=== PATIENT | male | born 1945 | race Caucasian/White ===

== ENCOUNTER 2016-10-20 17:21 | Inpatient (IN) ==
[2016-10-20] MEDS ORDERED: Ondansetron 4 MG/2 ML VIAL IVP ONE (17:36)
[2016-10-20] MEDS ORDERED: *HR* HYDROmorphone (PF) 1 MG/ML SYRINGE IVP ONE (17:36)
--- NOTE | 2016-10-20 17:44 | Emergency Department Note ---
Disposition Clinical Impression: Hyperbilirubinemia Pancreatitis Qualifiers: Chronicity: acute Pancreatitis type: unspecified pancreatitis type Acute pancreatitis complication: unspecified Qualified Code(s): K85.90 - Acute pancreatitis without necrosis or infection, unspecified Disposition: Admitted As Inpatient Condition: Fair Referrals: NONE,PCP [Non-Partnered Physician] - Forms: Work/School Release, ED Satisfaction Letter Time of Disposition: 18:38 (Problem) Abdominal Pain HPI - General Chief Complaint: ED Abdominal Pain Stated Complaint: ABD pain Time Seen by Provider: 10/20/16 17:30 Source: patient, family Mode of arrival: ambulatory Limitations: no limitations Nursing Notes Reviewed: Yes Vital Signs Reviewed: Yes - History of Present Illness HPI Narrative: Patient complains of upper abdominal pain for the past 3 days. History of similar symptoms due to pancreatitis. 2 years ago he underwent a cholecystectomy. He notes a normal appetite. No other associated symptoms Pt Subjective Complaint: abdominal pain Onset (ago): day(s) Consistency: constant Location: epigastric Pain Severity: moderate Pain Scale: 4 Quality: aching Radiation: back Improves with: nothing Worsens with: nothing Associated symptoms: Reports: denies other symptoms Treatments prior to arrival: none - Related Data Home Medications Medication Instructions Recorded Confirmed Allopurinol [Zyloprim] 300 mg PO HS 01/03/15 01/03/15 Triamterene/HCTZ 75/50mg [Maxzide] 1 each PO DAILY 01/03/15 01/03/15 Warfarin [Coumadin] 5 mg PO 1800 01/03/15 01/03/15 Previous Rx's Medication Instructions Recorded OxyCODONE/APAP 5/325 [Percocet 1 each PO Q6HR PRN #30 tablet 01/03/15 5/325] Allergies Allergy/AdvReac Type Severity Reaction Status Date / Time clindamycin AdvReac Rash Verified 01/03/15 12:44 tamsulosin [From Flomax] AdvReac Rash Verified 01/03/15 12:44 All systems ED: reviewed and negative except as stated. Constitutional: Reports: as per HPI Eyes: Reports: as per HPI ENT ED: Reports: as per HPI Cardiovascular: Reports: as per HPI Respiratory: Reports: as per HPI Gastrointestinal: Reports: abdominal pain Genitourinary: Reports: as per HPI Musculoskeletal: Reports: back pain Integumentary: Reports: as per HPI Neurological: Reports: as per HPI Psychiatric: Reports: as per HPI Endocrine: Reports: as per HPI Hematological/Lymphatic: Reports: as per HPI Allergic/Immunologic: Reports: as per HPI Abdominal Pain PMH - Past Medical History Medical history: Reports: DVT, hyperlipidemia, hypertension, pulmonary embolus, other Male Surgical History: Reports: appendectomy, other Psychiatric history: Reports: no psych history - Social History Smoking status: Never smoker Alcohol use: Reports: rarely Drug use: Reports: none Physical Exam - General Limitations: no limitations General appearance: alert - Head Head exam: atraumatic - Eye Eye exam: Present: normal appearance - ENT ENT exam: normal exam - Neck Neck exam: Present: normal inspection - Chest Chest inspection: Present: normal inspection, symmetric chest wall rise - Respiratory Respiratory exam: Present: normal lung sounds bilaterally - Cardiovascular Cardiovascular exam: Present: normal rhythm, bradycardia, normal heart sounds - Abdominal Exam Abdominal exam: Present: soft, tenderness, normal bowel sounds (mildly tender in epigastrium) - Rectal Exam Rectal exam: Present: deferred - Extremities Exam Extremities exam: Present: normal inspection - Neurological Exam Neurological exam: Present: alert, oriented X3, CN II-XII intact - Psychiatric Psychiatric exam: Present: normal affect, normal mood - Skin Skin exam: Present: warm, dry, intact Course Course Narrative: Patient complains of epigastric pain. He has known history of recurrent pancreatitis. Workup initiated. I do plan to CT scan his abdomen and pelvis without contrast because he takes Coumadin and I am concerned about the possibility of hemorrhagic pancreatitis - Reevaluation(s) Reevaluation #1: Test results discussed with patient. Concern for choledocholithiasis. Bilirubin is elevated. I will obtain an ultrasound of his common bile duct. He will be admitted to the medicine service. Requested consultation from GI. - Consultations Consultation #1: Call placed to GI clinical education coordinator. I spoke with Dr. Graham, covering for GI service. consult placed in computer Vital Signs Temperature 97.9 F 10/20/16 17:22 Pulse Rate 53 10/20/16 17:22 Respiratory Rate 16 10/20/16 17:22 Blood Pressure 114/77 10/20/16 17:22 O2 Sat by Pulse Oximetry 95 10/20/16 17:22 Temperature 97.9 F 10/20/16 17:22 Pulse Rate 82 10/20/16 18:05 Respiratory Rate 18 10/20/16 18:05 Blood Pressure 158/80 10/20/16 18:05 O2 Sat by Pulse Oximetry 97 10/20/16 18:05 Oxygen Delivery Oxygen Delivery Room Air Abdominal Pain - Lab Data Lab results reviewed: Yes I reviewed the patient's lab results. Result diagrams: 10/20/16 17:49 10/20/16 17:49 Lab Results 10/20/16 10/20/16 10/20/16 Range/Units 17:49 17:49 17:49 WBC 10.9 (4.3-11.1) K/mcL RBC 6.09 H (4.19-5.50) M/mcL Hgb 17.8 H (12.9-16.9) g/dL Hct 54.6 H (37.5-50.1) % MCV 89.7 (83.0-100.0) fL MCH 29.2 (28.0-33.3) pg MCHC 32.6 (31.6-35.5) g/dL RDW 14.3 (11.5-14.5) % Plt Count 188 (140-400) K/mcL MPV 10.0 (9.4-12.4) fL Immature Gran % 0.6 (0-4) % Seg Neutrophils % 61.6 % Lymphocytes % 27.6 % Monocytes % 7.7 % Eosinophils % 2.2 % Basophils % 0.3 % Neutrophils # 6.7 (1.6-8.9) K/mcL Lymphocytes # 3.0 (0.6-4.6) K/mcL Monocytes # 0.8 (0.0-1.3) K/mcL Eosinophils # 0.2 (0.0-0.6) K/mcL Basophils # 0.0 (0.0-0.2) K/mcL PT (9.4-12.1) Seconds INR Sodium 135 L (136-145) mEq/L Potassium 3.8 (3.5-4.5) mEq/L Chloride 99 (98-109) mEq/L Carbon Dioxide 29 (19-29) mEq/L BUN 18 (8-26) mg/dL Creatinine 1.32 H (0.72-1.25) mg/dL Est GFR ( Amer) > 60 (> 60) Est GFR (Non-Af Amer) 54 L (> 60) BUN/Creatinine Ratio 14 (6-26) Glucose 100 H (70-99) mg/dL Calculated Osmolality 282 (280-300) Calcium 10.0 (8.6-10.8) mg/dL Total Bilirubin 2.9 H (0.2-1.2) mg/dL AST 138 H (5-34) Units/L ALT 98 H (0-55) Units/L Alkaline Phosphatase 153 H (38-126) Units/L Troponin I 0.00 (0-0.03) ng/mL Serum Total Protein 7.0 (6.0-8.3) g/dL Albumin 3.5 (3.5-5.0) g/dL Globulin 3.5 (2.4-3.5) g/dL Albumin/Globulin Ratio 1.0 L (1.1-2.2) Amylase 53 (25-125) Units/L Lipase 38 (8-78) Units/L Urine Color (Yellow) Urine Clarity (Clear) Urine pH (5.0-8.0) pH Units Ur Specific [place] (1.010-1.025) Urine Protein (Neg-Trace) mg/dL Urine Glucose (UA) (Normal) mg/dL Urine Ketones (Negative) mg/dL Urine Blood (Negative) Urine Nitrite (Negative) Urine Bilirubin (Negative) Urine Urobilinogen (Normal) mg/dL Ur Leukocyte Esterase (Negative) Urine Microscopic RBC (0-3) per hpf Urine Microscopic WBC (0-3) per hpf Ur Squamous Epith Cells (None-Few) per lpf Urine Bacteria (None-Few) per hpf Hyaline Casts (None-Few) per lpf Urine Mucus (Few) 10/20/16 10/20/16 Range/Units 17:49 18:17 WBC (4.3-11.1) K/mcL RBC (4.19-5.50) M/mcL Hgb (12.9-16.9) g/dL Hct (37.5-50.1) % MCV (83.0-100.0) fL MCH (28.0-33.3) pg MCHC (31.6-35.5) g/dL RDW (11.5-14.5) % Plt Count (140-400) K/mcL MPV (9.4-12.4) fL Immature Gran % (0-4) % Seg Neutrophils % % Lymphocytes % % Monocytes % % Eosinophils % % Basophils % % Neutrophils # (1.6-8.9) K/mcL Lymphocytes # (0.6-4.6) K/mcL Monocytes # (0.0-1.3) K/mcL Eosinophils # (0.0-0.6) K/mcL Basophils # (0.0-0.2) K/mcL PT 47.1 H* (9.4-12.1) Seconds INR 4.2 Sodium (136-145) mEq/L Potassium (3.5-4.5) mEq/L Chloride (98-109) mEq/L Carbon Dioxide (19-29) mEq/L BUN (8-26) mg/dL Creatinine (0.72-1.25) mg/dL Est GFR ( Amer) (> 60) Est GFR (Non-Af Amer) (> 60) BUN/Creatinine Ratio (6-26) Glucose (70-99) mg/dL Calculated Osmolality (280-300) Calcium (8.6-10.8) mg/dL Total Bilirubin (0.2-1.2) mg/dL AST (5-34) Units/L ALT (0-55) Units/L Alkaline Phosphatase (38-126) Units/L Troponin I (0-0.03) ng/mL Serum Total Protein (6.0-8.3) g/dL Albumin (3.5-5.0) g/dL Globulin (2.4-3.5) g/dL Albumin/Globulin Ratio (1.1-2.2) Amylase (25-125) Units/L Lipase (8-78) Units/L Urine Color [place] A (Yellow) Urine Clarity Clear (Clear) Urine pH 5.5 (5.0-8.0) pH Units Ur Specific [place] 1.029 H (1.010-1.025) Urine Protein Trace (Neg-Trace) mg/dL Urine Glucose (UA) Normal (Normal) mg/dL Urine Ketones Trace H (Negative) mg/dL Urine Blood Negative (Negative) Urine Nitrite Positive A (Negative) Urine Bilirubin Moderate H (Negative) Urine Urobilinogen 4.0 H (Normal) mg/dL Ur Leukocyte Esterase Small H (Negative) Urine Microscopic RBC 0-3 (0-3) per hpf Urine Microscopic WBC 0-3 (0-3) per hpf Ur Squamous Epith Cells Many H (None-Few) per lpf Urine Bacteria Few (None-Few) per hpf Hyaline Casts Few (None-Few) per lpf Urine Mucus Few (Few) - Radiology Data Radiology results reviewed: Yes I reviewed the patient's radiology results. - EKG Data EKG attestation: Yes I reviewed and interpreted this EKG. EKG results narrative: Sinus bradycardia with first-degree AV block rate 46 PO2 32 QRS 98 QT/QTc 413/ 371. Study compared to previous dated 01/05/15
[2016-10-20 17:57] LABS: Basophils % 0.3 %; Eosinophils # 0.2 K/mcL (0.0-0.6); Eosinophils % 2.2 %; Hematocrit 54.6 % (37.5-50.1); Hemoglobin 17.8 g/dL (12.9-16.9); Immature Granulocytes % 0.6 % (0-4); Lymphocytes % 27.6 %; Mean Corpuscular HGB Conc 32.6 g/dL (31.6-35.5); Mean Corpuscular Hemoglobin 29.2 pg (28.0-33.3); Mean Corpuscular Volume 89.7 fL (83.0-100.0); Monocytes # 0.8 K/mcL (0.0-1.3); Monocytes % 7.7 %; Neutrophils # 6.7 K/mcL (1.6-8.9); Platelet Count 188 K/mcL (140-400); Red Blood Count 6.09 M/mcL (4.19-5.50); Red Cell Distribution Width 14.3 % (11.5-14.5); Segmented Neutrophils % 61.6 %
[2016-10-20 18:11] LABS: INR 4.2
[2016-10-20 18:15] LABS: Prothrombin Time 47.1 Seconds (9.4-12.1)
[2016-10-20 18:18] LABS: Alanine Aminotransferase 98 Units/L (0-55); Albumin 3.5 g/dL (3.5-5.0); Alkaline Phosphatase 153 Units/L (38-126); Amylase 53 Units/L (25-125); Aspartate Amino Transferase 138 Units/L (5-34); BUN/Creatinine Ratio 14 (6-26); Blood Urea Nitrogen 18 mg/dL (8-26); Carbon Dioxide 29 mEq/L (19-29); Chloride 99 mEq/L (98-109); Globulin 3.5 g/dL (2.4-3.5); Glucose 100 mg/dL (70-99); Lipase 38 Units/L (8-78); Osmolality,Calculated 282 (280-300); Potassium 3.8 mEq/L (3.5-4.5); Sodium 135 mEq/L (136-145); eGFR For African Americans > 60 (> 60); eGFR For Non-African Americans 54 (> 60)
[2016-10-20 18:20] LABS: Bilirubin,Total 2.9 mg/dL (0.2-1.2)
[2016-10-20 18:28] LABS: Bilirubin,Urine Moderate (Negative); Blood,Urine Negative (Negative); Clarity,Urine Clear (Clear); Color,Urine Orange (Yellow); Glucose,Urine (UA) Normal (Normal); Ketones,Urine Trace mg/dL (Negative); Leukocyte Esterase,Urine Small (Negative); Nitrite,Urine Positive (Negative); PH,Urine 5.5 pH Units (5.0-8.0); Protein,Urine Trace mg/dL (Neg-Trace); Specific Gravity,Urine 1.029 (1.010-1.025)
[2016-10-20 18:29] LABS: RBC,Urine 0-3 per hpf (0-3); Squamous Epithelial Cell,Urine Many per lpf (None-Few); WBC,Urine 0-3 per hpf (0-3)
[2016-10-20 18:43] LABS: Hyaline Casts,Urine Few per lpf (None-Few)
[2016-10-20 18:44] LABS: Bacteria,Urine Few per hpf (None-Few); Mucus,Urine Few (Few)
[2016-10-20 19:07] LABS: Bilirubin,Direct 1.9 mg/dL (0.0-0.5)
[2016-10-20] MEDS ORDERED: Naloxone 0.4 MG/ML INJ IVP PRN (20:31)
[2016-10-20] MEDS ORDERED: Ondansetron 4 MG/2 ML VIAL IVP PRN (20:31)
[2016-10-20] MEDS ORDERED: *HR* Morphine 2 MG/ML SYRINGE IVP PRN (20:31)
[2016-10-20] MEDS ORDERED: Acetaminophen 325 MG TABLET PO PRN (20:31)
--- NOTE | 2016-10-20 20:42 | Internal Med History&Physical ---
Date of Encounter: 10/20/16 Time of Encounter: 20:00 Assessment and Plan (1) Hypertension Current visit: Yes Status: Acute hold home medication because of nothing by mouth. Hydralazine IV when necessary. Qualifiers: Hypertension type: essential hypertension Qualified Code(s): I10 - Essential (primary) hypertension (2) DVT (deep venous thrombosis) Current visit: Yes Status: Acute patient has a history of DVT on Coumadin. INR is supratherapeutic. Hold Coumadin now, monitor PT/INR. Qualifiers: DVT location: lower extremity Affected thrombotic vein of extremity: unspecified vein of extremity Chronicity: chronic Laterality: unspecified laterality Qualified Code(s): I82.509 - Chronic embolism and thrombosis of unspecified deep veins of unspecified lower extremity (3) Pulmonary embolism Current visit: Yes Status: Acute History of PE. On coumadin. Qualifiers: Pulmonary embolism type: other Chronicity: chronic Acute cor pulmonale presence: without acute cor pulmonale Qualified Code(s): I27.82 - Chronic pulmonary embolism (4) DVT prophylaxis Current visit: Yes Status: Acute Patient is on Coumadin. Monitor PT INR, and right now INR supratherapeutic (5) Pancreatitis Current visit: Yes Status: Acute Patient has history of chronic pancreatitis. He has epigastric pain. He has elevated bilirubin and liver enzymes, no signs of infection. - Patient had cholecystectomy already. However, US liver ordered to r/o biliary obstruction. - Place patient on nothing by mouth, IV fluid, pain medication. - Continue follow-up with liver function, lipase and amylase. - Patient denies alcohol use. We will track lipid level. Qualifiers: Chronicity: acute Pancreatitis type: unspecified pancreatitis type Acute pancreatitis complication: unspecified Qualified Code(s): K85.90 - Acute pancreatitis without necrosis or infection, unspecified Internal Medicine - H&P: HPI Chief complaint: Abdominal pain Admitted From: Home Plans for Post Hospital Care: Home History of present illness: Mr. Quintanilla is a 71 year old male with history of chronic pancreatitis, hypertension, DVT and PE on Coumadin, presented to ER for abdominal pain. Patient said the pain started 2 days ago, located on epigastric area, radiated to the back. Pain is a cramping, dull, aching, 3-4 out of 10. Patient denies nausea, vomiting, diarrhea, fever, chills, chest pain, or shortness of breath. Patient has decreased appetite but said pain is not getting worse on eating. In the emergency room, he was found elevated bilirubin and liver enzyme level. Lipase and amylase is within normal limits. However, CT of abdomen suggest acute pancreatitis. Patient has a history of cholecystectomy. Patient will admitted for further management. I discussed CODE STATUS with patient. He is full code. Past Med Surg Social Fam HX - Past Medical History Medical history: DVT, hyperlipidemia, hypertension, pulmonary embolus, other Psychiatric history: no psych history - Past Surgical History Surgical History: orthopedic, other - Social History Smoking Status: Never smoker Smokeless Tobacco Status: No Alcohol use: rarely Drug use: none Internal Medicine - H&P: Meds Allopurinol [Zyloprim] 300 mg PO HS 01/03/15 [History] Warfarin [Coumadin] 5 mg PO 1800 01/03/15 [History] Clotrimazole/Betameth Dip CRM [Lotrisone CRM] 1 appl TP DAILY 10/20/16 [History] Triamterene/HCTZ 37.5/25mg [Dyazide] 1 tab PO DAILY 10/20/16 [History] Allergies clindamycin Adverse Reaction (Verified 01/03/15 12:44) Rash tamsulosin [From Flomax] Adverse Reaction (Verified 01/03/15 12:44) Rash All Systems PM: A 10-system review of systems was performed and is negative for pertinent findings except as documented above in the HPI. - Constitutional Vitals: Temp Pulse Resp BP Pulse Ox 97.9 F 45 18 103/67 94 10/20/16 17:22 10/20/16 19:18 10/20/16 20:27 10/20/16 20:27 10/20/16 19:18 General appearance: Present: A&O X 3, answers questions appropriately - Head Head exam: Present: atraumatic, normocephalic - Eye Eye exam: Present: PERRL, conjuntiva pink, sclera anicteric Pupils: Present: PERRL - Neck Neck exam general surgery: Present: supple, trachea midline. Absent: lymphadenopathy - Respiratory Respiratory exam: Present: CTAB. Absent: accessory muscle use, rales, rhonchi, wheezes - Cardiovascular Cardiovascular exam: Present: RRR, +S1, +S2. Absent: diastolic murmur, gallop, rubs, systolic murmur - GI/Abdominal GI/Abdominal exam: Present: normal bowel sounds, soft, tenderness (Mild epigastric tenderness without rebound or guarding. Martin's sign negative), no peritoneal signs. Absent: distended - Extremities Exam Extremities exam: Present: warm, radial pulses palpable and symmetrical. Absent : calf tenderness, cyanotic, pedal edema Additional comments: Great saphenous vein varicosis bilaterally. - Neurological Exam Neurological exam: Present: CN II-XII intact, oriented X3, no focal deficits. Absent: pronater drift, facial droop, speech deficit - Skin Skin exam: Present: dry, intact Internal Med - H&P Results - Labs CBC & Chem 7: 10/20/16 17:49 10/20/16 17:49 - EKG Data -: EKG Interpreted by Myself EKG shows normal: sinus rhythm Rate: normal
[2016-10-20] MEDS: 0.9 % Sodium Chloride 1,000 ML IVC SCH (21:55)
[2016-10-21] MEDS: Pantoprazole 40 MG VIAL IVP SCH (04:46)
[2016-10-21] MEDS: 0.9 % Sodium Chloride 1,000 ML IVC SCH (04:46)
[2016-10-21 06:01] LABS: Hematocrit 53.1 % (37.5-50.1); Hemoglobin 17.4 g/dL (12.9-16.9); Immature Granulocytes % 0.5 % (0-4); Lymphocytes % 20.7 %; Mean Corpuscular HGB Conc 32.8 g/dL (31.6-35.5); Mean Corpuscular Hemoglobin 29.4 pg (28.0-33.3); Mean Corpuscular Volume 89.7 fL (83.0-100.0); Mean Platelet Volume 10.6 fL (9.4-12.4); Platelet Count 154 K/mcL (140-400); Red Blood Count 5.92 M/mcL (4.19-5.50); Red Cell Distribution Width 14.2 % (11.5-14.5); Segmented Neutrophils % 66.7 %
[2016-10-21 06:02] LABS: Basophils % 0.3 %; Eosinophils # 0.3 K/mcL (0.0-0.6); Eosinophils % 3.8 %; Lymphocytes # 1.4 K/mcL (0.6-4.6); Monocytes # 0.5 K/mcL (0.0-1.3); Neutrophils # 4.3 K/mcL (1.6-8.9)
[2016-10-21 06:17] LABS: Lipase 575 Units/L (8-78)
[2016-10-21 06:18] LABS: Alanine Aminotransferase 150 Units/L (0-55); Albumin 3.1 g/dL (3.5-5.0); Alkaline Phosphatase 174 Units/L (38-126); Aspartate Amino Transferase 183 Units/L (5-34); BUN/Creatinine Ratio 15 (6-26); Blood Urea Nitrogen 17 mg/dL (8-26); Calcium 9.4 mg/dL (8.6-10.8); Carbon Dioxide 29 mEq/L (19-29); Chloride 100 mEq/L (98-109); Chol/HDL Ratio 3.5 (0-4.9); Cholesterol 146 mg/dL (< 200); Glucose 84 mg/dL (70-99); HDL Cholesterol 42 mg/dL (40-59); LDL Cholesterol,Calculated 92 mg/dL (0-99); Magnesium 1.6 mg/dL (1.6-2.6); Osmolality,Calculated 285 (280-300); Potassium 3.6 mEq/L (3.5-4.5); Total Protein 6.1 g/dL (6.0-8.3); Triglycerides 62 mg/dL (< 150); eGFR For African Americans > 60 (> 60); eGFR For Non-African Americans > 60 (> 60)
[2016-10-21 06:20] LABS: INR 3.3; Prothrombin Time 37.5 Seconds (9.4-12.1)
[2016-10-21 06:24] LABS: Amylase 292 Units/L (25-125); Bilirubin,Total 5.7 mg/dL (0.2-1.2); Sodium 137 mEq/L (136-145)
[2016-10-21] MEDS: Clotrimazole/Betameth Dip CRM 45 APPL/45 GM TUBE TP SCH (09:38)
--- NOTE | 2016-10-21 11:30 | Gastroenterology Consult Note ---
<Ki Gee - Last Filed: 10/21/16 11:28> Date of Encounter: 10/21/16 Time of Encounter: 10:30 - Assessment and plan (1) Hyperbilirubinemia Current Visit: Yes Status: Acute Assessment and plan: On admission, TB 2.9, AST 138, ALT 98, alk phos 153, lipase 38, and INR 4.2. Today, TB 5.7, AST 183, ALT 150, alk phos 174, lipase 575, and INR 3.3. CT A/P with evidence of acute uncomplicated pancreatitis with peripancreatic fat stranding. No significant intra-/extrahepatic biliary ductal dilation. Liver US : Prior cholecystectomy. Mild biliary dilation up to 10 mm with possibility of a distal ductal stone or stricture given the history. Plan for ERCP tomorrow. Will need to correct INR to 1.5 or less prior to ERCP. (2) Supratherapeutic INR Current Visit: Yes Status: Acute Assessment and plan: INR 4.2 on admission and today 3.3. Give 4 units FFP and 5 mg Vitamin K. (3) Pancreatitis Current Visit: Yes Status: Acute Assessment and plan: History of pancreatitis, last 2 years ago. Lipase on admission 38 and today 575. Continue IV fluids, antiemetics, and pain control. Qualifiers: Chronicity: acute Pancreatitis type: unspecified pancreatitis type Acute pancreatitis complication: unspecified Qualified Code(s): K85.90 - Acute pancreatitis without necrosis or infection, unspecified (4) History of pulmonary embolus (PE) Current Visit: Yes Status: Acute Assessment and plan: On Coumadin. (5) History of DVT (deep vein thrombosis) Current Visit: Yes Status: Acute - Time Spent With Patient Total time spent is greater than 50% in coordination of care (as documented) at patient's floor/unit and/or counseling patient: GI History of Present Illness - Data of Consult Patient: new to practice Consult date: 10/21/16 Requesting Physician: Elsa Sena MD - Consult Narrative Reason for consult: Choledocholithiasis History of present illness: Mr. Quintanilla is a 71 year old male with PMHx of pancreatitis (2 years ago), DVT ( ), HLD, HTN, PE (in ) on Coumadin who presented to the ED for epigastric abdominal pain which started 2 days prior to admission. He denies fever, chills, chest pain, SOB, nausea, vomiting. Patient has decreased appetite but said pain is not getting worse on eating. On admission, TB 2.9, AST 138, ALT 98, alk phos 153, lipase 38, and INR 4.2. CT A/P with evidence of acute uncomplicated pancreatitis with peripancreatic fat stranding. No significant intra-/extrahepatic biliary ductal dilation. Liver US: Prior cholecystectomy. Mild biliary dilation up to 10 mm with possibility of a distal ductal stone or stricture given the history. Today, TB 5.7, AST 183, ALT 150, alk phos 174, lipase 575, and INR 3.3. Procedures: None NSAIDs: None Anticoagulation: Coumadin Past Med Surg Social Fam HX - Past Medical History Medical history: DVT, hyperlipidemia, hypertension, pulmonary embolus, other Psychiatric history: no psych history - Past Surgical History Surgical History: orthopedic, other - Social History Smoking Status: Never smoker Smokeless Tobacco Status: No Alcohol use: rarely Drug use: none - Gastrointestinal Gastrointestinal: Present: as per HPI - Constitutional Constitutional: as per HPI - EENT Eyes: as per HPI Ears: Present: as per HPI Nose, mouth and throat: Present: as per HPI - Cardiovascular Cardiovascular ROS: Present: as per HPI - Respiratory Respiratory IM: Present: as per HPI - Genitourinary Genitourinary: Absent: change in color, Urinary frequency - Neurological ROS Neurological GI: Present: as per HPI - Hematologic/Lymphatic Hematologic/Lymphatic pediatric: Present: as per HPI - Musculoskeletal Musculoskeletal ROS GI: Present: as per HPI - Integumentary Integumentary GI: Present: as per HPI - Psychiatric ROS Psychiatric GI: Present: as per HPI - Endocrine Endocrine IM: Present: as per HPI - Constitutional Vitals: Temp Pulse Resp BP Pulse Ox 98.5 F 49 15 106/63 93 10/21/16 08:10 10/21/16 08:10 10/21/16 08:10 10/21/16 08:10 10/21/16 08:10 General appearance: Present: cooperative, A&O X 3, no acute distress, answers questions appropriately - Head Head exam: Present: atraumatic, normocephalic - Eye Eye exam: Present: normal appearance, sclera anicteric - ENT ENT exam: Present: mucous membranes dry - Neck Neck exam general surgery: Present: normal inspection, trachea midline - Respiratory Respiratory exam: Present: CTAB. Absent: rales, rhonchi - Cardiovascular Cardiovascular exam: Present: RRR, +S1, +S2 - GI/Abdominal GI/Abdominal exam: Present: soft, tenderness (epigastric), no peritoneal signs. Absent: distended, firm, guarding - Rectal Rectal exam: Present: deferred - Extremities Exam Extremities exam: Present: warm - Neurological Exam Neurological exam: Present: no focal deficits - Psychiatric Psychiatric exam: Present: normal affect, normal mood - Skin Skin exam: Present: dry, intact, normal color, warm Results - Labs CBC & Chem 7: 10/21/16 05:20 10/21/16 05:20 Labs: Last Result Calcium 9.4 mg/dL (8.6-10.8) 10/21/16 05:20 Troponin I 0.00 ng/mL (0-0.03) 10/20/16 17:49 Triglycerides 62 mg/dL (< 150) 10/21/16 05:20 Entire Visit Hgb 17.4 g/dL (12.9-16.9) H 10/21/16 05:20 Hct 53.1 % (37.5-50.1) H 10/21/16 05:20 PT 37.5 Seconds (9.4-12.1) H 10/21/16 05:20 Total Bilirubin 5.7 mg/dL (0.2-1.2) H D 10/21/16 05:20 AST 183 Units/L (5-34) H 10/21/16 05:20 ALT 150 Units/L (0-55) H 10/21/16 05:20 Amylase 292 Units/L (25-125) H 10/21/16 05:20 Lipase 575 Units/L (8-78) H 10/21/16 05:20 - ABG ABG results: PT/INR, D-dimer PT 37.5 Seconds (9.4-12.1) H 10/21/16 05:20 Consult Discharge Plan - Plan Referrals: Torsten Mcdaniel MD [Primary Care Provider] - 10/28/16 11:00 am <Sofia Latham - Last Filed: 10/21/16 19:42> Date of Encounter: 10/21/16 Time of Encounter: 17:35 - Time Spent With Patient Total time spent is greater than 50% in coordination of care (as documented) at patient's floor/unit and/or counseling patient: GI History of Present Illness - Data of Consult Requesting Physician: Elsa Sena MD - Consult Narrative History of present illness: Mr. Quintanilla is a 71 year old male - Constitutional Vitals: Temp Pulse Resp BP Pulse Ox 98.2 F 62 16 122/71 96 10/21/16 18:10 10/21/16 18:10 10/21/16 18:10 10/21/16 18:10 10/21/16 18:10 Results - Labs CBC & Chem 7: 10/21/16 05:20 10/21/16 05:20 Labs: Last Result Calcium 9.4 mg/dL (8.6-10.8) 10/21/16 05:20 Troponin I 0.00 ng/mL (0-0.03) 10/20/16 17:49 Triglycerides 62 mg/dL (< 150) 10/21/16 05:20 Entire Visit Hgb 17.4 g/dL (12.9-16.9) H 10/21/16 05:20 Hct 53.1 % (37.5-50.1) H 10/21/16 05:20 PT 37.5 Seconds (9.4-12.1) H 10/21/16 05:20 Total Bilirubin 5.7 mg/dL (0.2-1.2) H D 10/21/16 05:20 AST 183 Units/L (5-34) H 10/21/16 05:20 ALT 150 Units/L (0-55) H 10/21/16 05:20 Amylase 292 Units/L (25-125) H 10/21/16 05:20 Lipase 575 Units/L (8-78) H 10/21/16 05:20 - ABG ABG results: PT/INR, D-dimer PT 37.5 Seconds (9.4-12.1) H 10/21/16 05:20 - Attending Attestation I examined this patient and my medical decision-making was reviewed with the Resident Physician. I agree with the documented findings, disposition and treatment plan as described except to the extent set forth below.
[2016-10-21] MEDS ORDERED: *HR* Phytonadione 5 MG TABLET PO ONE (11:42)
--- NOTE | 2016-10-21 11:51 | Internal Med Progress Note ---
Date of Encounter: 10/21/16 Time of Encounter: 11:46 - Assessment and plan (1) Pancreatitis Current Visit: Yes Status: Acute Assessment and plan: continue supportive care IV fluids pain control start clear liquid diet will continue to closely monitor Qualifiers: Chronicity: acute Pancreatitis type: unspecified pancreatitis type Acute pancreatitis complication: unspecified Qualified Code(s): K85.90 - Acute pancreatitis without necrosis or infection, unspecified (2) Hyperbilirubinemia Current Visit: Yes Status: Acute Assessment and plan: Liver US reported mild biliary dilation scheduled for ERCP In am Received one dose of Vitamin K will closely monitor INR, if INR not below 1.5 in am, will transfuse FFP GI evaluation appreciated (3) Hypertension Current Visit: Yes Status: Acute Assessment and plan: BP within acceptable range despite holding oral antihypertensive medications will continue to closely monitor BP Qualifiers: Hypertension type: essential hypertension Qualified Code(s): I10 - Essential (primary) hypertension (4) DVT (deep venous thrombosis) Current Visit: Yes Status: Chronic Assessment and plan: holding oral anticoagulation at this time will resume anticoagulation with Coumadin after ERCP Qualifiers: DVT location: lower extremity Affected thrombotic vein of extremity: unspecified vein of extremity Chronicity: chronic Laterality: unspecified laterality Qualified Code(s): I82.509 - Chronic embolism and thrombosis of unspecified deep veins of unspecified lower extremity (5) Pulmonary embolism Current Visit: Yes Status: Chronic Assessment and plan: as listed above Qualifiers: Pulmonary embolism type: other Chronicity: chronic Acute cor pulmonale presence: without acute cor pulmonale Qualified Code(s): I27.82 - Chronic pulmonary embolism (6) DVT prophylaxis Current Visit: Yes Status: Acute Assessment and plan: currently anticoagulated with coumadin (7) Supratherapeutic INR Current Visit: Yes Status: Acute Assessment and plan: s/p Vitamin K supplementation will closely monitor no active bleeding reported at this time will give FFP if INR>1.5 in am - Subjective Interval history: Pt seen and examined with family present at bedside. Reports of resolution of abd pain.Reports of being hungry and denies any discomfort at this time. Noted to have worsening LFTs along with mild biliary dilatation reported on Liver US. GI consultation noted, pt to undergo ERCP in am. Pt received one dose of Vitamin K, will administer FFP if INR not less than 1.5 for the procedure. - Constitutional Vitals: Temp Pulse Resp BP Pulse Ox 98.5 F 49 15 106/63 93 10/21/16 08:10 10/21/16 08:10 10/21/16 08:10 10/21/16 08:10 10/21/16 08:10 General appearance: Present: cooperative, A&O X 3, morbidly obese, pleasant, no acute distress, answers questions appropriately - Head Head exam: Present: atraumatic, normocephalic - Eye Eye exam: Present: conjuntiva pink, sclera anicteric - Respiratory Respiratory exam: Present: CTAB. Absent: respiratory distress, wheezes - Cardiovascular Cardiovascular exam: Present: RRR, +S1, +S2. Absent: diastolic murmur, gallop, rubs, systolic murmur - GI/Abdominal GI/Abdominal exam: Present: distended (obese), normal bowel sounds, soft, no peritoneal signs. Absent: tenderness - Extremities Exam Extremities exam: Present: warm, radial pulses palpable and symmetrical (b/l LE) . Absent: calf tenderness (b/l LE venous stasis) - Neurological Exam Neurological exam: Present: alert, oriented X3 - Psychiatric Psychiatric exam: Present: normal affect, normal mood Internal Medicine: Result - Labs CBC & Chem 7: 10/21/16 05:20 10/21/16 05:20 Labs: Short CBC 10/21/16 Range/Units 05:20 WBC 6.5 (4.3-11.1) K/mcL Hgb 17.4 H (12.9-16.9) g/dL Hct 53.1 H (37.5-50.1) % Plt Count 154 (140-400) K/mcL Neutrophils # 4.3 (1.6-8.9) K/mcL BMP 10/21/16 05:20 Sodium 137 Potassium 3.6 Chloride 100 Carbon Dioxide 29 BUN 17 Creatinine 1.14 Glucose 84 Calcium 9.4 Liver Function 10/21/16 Range/Units 05:20 Total Bilirubin 5.7 H D (0.2-1.2) mg/dL AST 183 H (5-34) Units/L ALT 150 H (0-55) Units/L Alkaline Phosphatase 174 H (38-126) Units/L Albumin 3.1 L (3.5-5.0) g/dL - ABG Interpretation ABG results: PT/INR, D-dimer PT 37.5 Seconds (9.4-12.1) H 10/21/16 05:20 Consult Discharge Plan - Plan Referrals: Torsten Mcdaniel MD [Primary Care Provider] - 10/28/16 11:00 am
[2016-10-21] MEDS ORDERED: *HR* HYDROcodone/Acet 5/325 mg TABLET PO PRN (12:37)
[2016-10-21] MEDS ORDERED: 0.9 % Sodium Chloride 250 ML ONE ×4 (14:03→23:36)
--- NOTE | 2016-10-21 15:16 | Electrocardiograph Report ---
[address] [address] Test Date: 2016-10-20 Pat Name: Vineet Quintanilla Department: 0 Room: 3A Gender: M [employer] Att[employer]: : 1945 Requested By: Reji Fraga Order Number: [id number] Reading MD: Edison Laird MD Measurements Intervals [place] Rate: 46 P: 21 DE: 232 QRS: -45 QRSD: 98 T: 0 QT: 413 QTc: 371 Interpretive Statements SINUS BRADYCARDIA WITH FIRST DEGREE AV BLOCK LOW QRS VOLTAGE IN PRECORDIAL LEADS INFERIOR MYOCARDIAL INFARCTION PROBABLY OLD Electronically Signed On 10-21-2016 15:14:08 EDT by Edison Laird MD
[2016-10-22] MEDS: Pantoprazole 40 MG VIAL IVP SCH (05:16)
[2016-10-22 06:01] LABS: Basophils % 0.2 %; Eosinophils # 0.4 K/mcL (0.0-0.6); Eosinophils % 6.8 %; Hematocrit 49.3 % (37.5-50.1); Hemoglobin 16.2 g/dL (12.9-16.9); Immature Granulocytes % 0.5 % (0-4); Lymphocytes # 1.8 K/mcL (0.6-4.6); Lymphocytes % 29.7 %; Mean Corpuscular HGB Conc 32.9 g/dL (31.6-35.5); Mean Corpuscular Hemoglobin 30.2 pg (28.0-33.3); Mean Corpuscular Volume 91.8 fL (83.0-100.0); Mean Platelet Volume 10.1 fL (9.4-12.4); Monocytes # 0.5 K/mcL (0.0-1.3); Monocytes % 8.5 %; Neutrophils # 3.2 K/mcL (1.6-8.9); Platelet Count 153 K/mcL (140-400); Red Blood Count 5.37 M/mcL (4.19-5.50); Red Cell Distribution Width 14.4 % (11.5-14.5); Segmented Neutrophils % 54.3 %
[2016-10-22 06:19] LABS: Alanine Aminotransferase 103 Units/L (0-55); Albumin 3.1 g/dL (3.5-5.0); Alkaline Phosphatase 139 Units/L (38-126); Amylase 81 Units/L (25-125); Aspartate Amino Transferase 95 Units/L (5-34); BUN/Creatinine Ratio 13 (6-26); Bilirubin,Total 2.2 mg/dL (0.2-1.2); Blood Urea Nitrogen 14 mg/dL (8-26); Calcium 9.4 mg/dL (8.6-10.8); Carbon Dioxide 32 mEq/L (19-29); Chloride 102 mEq/L (98-109); Globulin 3.1 g/dL (2.4-3.5); Glucose 86 mg/dL (70-99); Lipase 55 Units/L (8-78); Magnesium 1.6 mg/dL (1.6-2.6); Osmolality,Calculated 288 (280-300); Phosphorous 1.9 mg/dL (2.3-4.7); Potassium 3.9 mEq/L (3.5-4.5); Sodium 139 mEq/L (136-145); Total Protein 6.2 g/dL (6.0-8.3); eGFR For African Americans > 60 (> 60); eGFR For Non-African Americans > 60 (> 60)
[2016-10-22 07:13] LABS: INR 1.8; Prothrombin Time 20.1 Seconds (9.4-12.1)
[2016-10-22] MEDS: 0.9 % Sodium Chloride 1,000 ML IVC SCH ×4 (09:22→22:28)
[2016-10-22] MEDS: Clotrimazole/Betameth Dip CRM 45 APPL/45 GM TUBE TP SCH (09:23)
[2016-10-22] MEDS ORDERED: 0.9 % Sodium Chloride 250 ML ONE (11:02)
--- NOTE | 2016-10-22 11:56 | Internal Med Progress Note ---
Date of Encounter: 10/22/16 Time of Encounter: 11:53 - Assessment and plan (1) Pancreatitis Current Visit: Yes Status: Acute Assessment and plan: continue supportive care IV fluids pain control clear liquid diet, will advance as per GI will continue to closely monitor Qualifiers: Chronicity: acute Pancreatitis type: unspecified pancreatitis type Acute pancreatitis complication: unspecified Qualified Code(s): K85.90 - Acute pancreatitis without necrosis or infection, unspecified (2) Hyperbilirubinemia Current Visit: Yes Status: Acute Assessment and plan: Liver US reported mild biliary dilation scheduled for ERCP today (10/22/16) s/p 2units FFP administration today GI evaluation appreciated (3) Hypertension Current Visit: Yes Status: Acute Assessment and plan: BP within acceptable range despite holding oral antihypertensive medications will continue to closely monitor BP Qualifiers: Hypertension type: essential hypertension Qualified Code(s): I10 - Essential (primary) hypertension (4) DVT (deep venous thrombosis) Current Visit: Yes Status: Chronic Assessment and plan: holding oral anticoagulation at this time will resume anticoagulation with Coumadin after ERCP Qualifiers: DVT location: lower extremity Affected thrombotic vein of extremity: unspecified vein of extremity Chronicity: chronic Laterality: unspecified laterality Qualified Code(s): I82.509 - Chronic embolism and thrombosis of unspecified deep veins of unspecified lower extremity (5) Pulmonary embolism Current Visit: Yes Status: Chronic Assessment and plan: as listed above Qualifiers: Pulmonary embolism type: other Chronicity: chronic Acute cor pulmonale presence: without acute cor pulmonale Qualified Code(s): I27.82 - Chronic pulmonary embolism (6) DVT prophylaxis Current Visit: Yes Status: Acute Assessment and plan: currently anticoagulated with coumadin (7) Supratherapeutic INR Current Visit: Yes Status: Resolved Assessment and plan: s/p Vitamin K supplementation will closely monitor s.p 2units FFP administration - Subjective Interval history: Pt seen and examined with family present at bedside. Scheduled for ERCP today. No abd pain or discomfort reported. No overnight issues reported. Pt received 2units FFP prior to ERCP today. - Constitutional Vitals: Temp Pulse Resp BP Pulse Ox 98.1 F 44 16 102/55 93 10/22/16 11:31 10/22/16 11:31 10/22/16 11:31 10/22/16 11:31 10/22/16 11:16 General appearance: Present: cooperative, A&O X 3, morbidly obese, pleasant, no acute distress, answers questions appropriately - Head Head exam: Present: atraumatic, normocephalic - Eye Eye exam: Present: conjuntiva pink, sclera anicteric - Respiratory Respiratory exam: Present: CTAB. Absent: respiratory distress, wheezes - Cardiovascular Cardiovascular exam: Present: RRR, +S1, +S2. Absent: diastolic murmur, gallop, rubs, systolic murmur - GI/Abdominal GI/Abdominal exam: Present: normal bowel sounds, soft, no peritoneal signs. Absent: distended, tenderness - Extremities Exam Extremities exam: Present: warm, radial pulses palpable and symmetrical. Absent : calf tenderness (b/l LE chronic venous stasis) - Neurological Exam Neurological exam: Present: alert, oriented X3 - Psychiatric Psychiatric exam: Present: normal affect, normal mood Internal Medicine: Result - Labs CBC & Chem 7: 10/22/16 05:30 10/22/16 05:30 - ABG Interpretation ABG results: PT/INR, D-dimer PT 20.1 Seconds (9.4-12.1) H 10/22/16 06:53 Consult Discharge Plan - Plan Referrals: Torsten Mcdaniel MD [Primary Care Provider] - 10/28/16 11:00 am
--- NOTE | 2016-10-22 14:31 | Anesthesia Evaluation PreOp ---
Date of Encounter: 10/22/16 Time of Encounter: 14:29 - Past History Planned Operation: ERCP Cardiac History: HTN, Other (Hx DVT) Pulmonary History: Other (Chews tobacco) WEB MASTER History: Denies Any Significant HX Other Medical History: Denies Any Significant HX Anesthesia History: No Prior Anesthetic Complications, Past Anesthesia (GB) Alcohol Use: rarely Drug use: none Medications and Allergies Allopurinol [Zyloprim] 300 mg PO HS 01/03/15 [History] Warfarin [Coumadin] 5 mg PO 1800 01/03/15 [History] Clotrimazole/Betameth Dip CRM [Lotrisone CRM] 1 appl TP DAILY 10/20/16 [History] Triamterene/HCTZ 37.5/25mg [Dyazide] 1 tab PO DAILY 10/20/16 [History] 3 Allergy/AdvReac Type Severity Reaction Status Date / Time clindamycin AdvReac Rash Verified 01/03/15 12:44 tamsulosin [From Flomax] AdvReac Rash Verified 01/03/15 12:44 - Meds/Allergy Pre-op Review Medications Reviewed: Yes Allergies Reviewed: Yes Beta Blockers on Current Med List: No Anesthesia Results - Labs 10/22/16 05:30 10/22/16 05:30 - Imaging EKG: image reviewed (SR, 1st degree AV block, poss old Inf. AK) Anesthesia Exam O2 Sat Weight 130.8 kg O2 Sat by Pulse Oximetry 95 O2 Sat by Pulse Oximetry 96 O2 Sat by Pulse Oximetry 93 O2 Sat by Pulse Oximetry 96 O2 Sat by Pulse Oximetry 95 O2 Sat by Pulse Oximetry 94 O2 Sat by Pulse Oximetry 93 O2 Sat by Pulse Oximetry 93 O2 Sat by Pulse Oximetry 95 O2 Sat by Pulse Oximetry 93 O2 Sat by Pulse Oximetry 93 O2 Sat by Pulse Oximetry 93 O2 Sat by Pulse Oximetry 93 O2 Sat by Pulse Oximetry 94 O2 Sat by Pulse Oximetry 94 O2 Sat by Pulse Oximetry 96 O2 Sat by Pulse Oximetry 91 O2 Sat by Pulse Oximetry 93 O2 Sat by Pulse Oximetry 93 Vital Signs Temp Pulse Resp BP Pulse Ox 97.9 F 53 16 114/77 95 10/20/16 17:22 10/20/16 17:22 10/20/16 17:22 10/20/16 17:22 10/20/16 17:22 Vital Signs/O2 Sat, Most Current Temp Pulse Resp BP Pulse Ox 98.1 F 38 18 125/71 95 10/22/16 13:42 10/22/16 13:42 10/22/16 13:42 10/22/16 13:42 10/22/16 13:42 Height: 6'2'' Weight: 188# NPO (# of Hours): > 8 hrs Pain Scale: 0 Pain Scale Used: Numeric (1 - 10) - HEENT Pupil (Motor): Pupils equal, EOMI Mallampati: II Teeth: Normal Oral Opening: Greater than 3 - WEB MASTER LOC: Oriented WEB MASTER Motor: Normal RUE, Normal LUE, Normal RLE, Normal LLE, Normal Face WEB MASTER Sensory: Normal: RUE, LUE, RLE, LLE, Face - Cardiac Rhythm: Regular Murmur: None JVD: No Carotid Bruit: No - Pulmonary Breath Sounds: bilateral Clear Respiratory Effort: Symmetrical Anesthesia Assess/Plan ASA Score: 3 Modified [place] Scale for Level of Consciousness: Cooperative, oriented, and tranquil Anesthetic Plan: General Autologous Blood: Yes Monitoring Plan: Standard Monitors Recovery Plan: PACU
[2016-10-22] MEDS ORDERED: *HR* FentaNYL (PF) 100 MCG/2 ML VIAL ONE (14:48)
[2016-10-22] MEDS ORDERED: Ringers Solution, Lactated 1,000 ML IVC SCH (15:00)
[2016-10-22] MEDS ORDERED: *HR* HYDROmorphone (PF) 1 MG/ML SYRINGE IVP PRN (15:18)
[2016-10-22] MEDS ORDERED: Ondansetron 4 MG/2 ML VIAL IVP PRN (15:18)
--- NOTE | 2016-10-22 16:03 | Anesthesia Evaluation Post Op ---
Date of Encounter: 10/22/16 Time of Encounter: 16:05 - Lungs Lungs: Clear Ascult./Percussion - Airway Airway: Non-obstructed - Cardiovascular Regular Rate - Mental Status Mental Status: Alert & Oriented, Answers Appropriately - Pain Pain Scale: 2 Pain Scale used: Numeric (1 - 10) - Nausea Vomiting Nausea Vomiting: Present - Hydration Hydration: Tolerates oral liquids, Ice chips - Discharge PostOp Status: Transfer Patient to floor
[2016-10-23 01:03] LABS: Eosinophils % 0.2 %; Hematocrit 49.7 % (37.5-50.1); Hemoglobin 15.9 g/dL (12.9-16.9); Immature Granulocytes % 0.4 % (0-4); Immature Platelets 4.7 % (1.1-6.1); Lymphocytes # 1.1 K/mcL (0.6-4.6); Lymphocytes % 21.2 %; Mean Corpuscular Hemoglobin 29.2 pg (28.0-33.3); Mean Corpuscular Volume 91.4 fL (83.0-100.0); Mean Platelet Volume 10.6 fL (9.4-12.4); Monocytes # 0.1 K/mcL (0.0-1.3); Monocytes % 2.8 %; Neutrophils # 3.8 K/mcL (1.6-8.9); Platelet Count 155 K/mcL (140-400); Red Blood Count 5.44 M/mcL (4.19-5.50); Segmented Neutrophils % 75.4 %
[2016-10-23 01:08] LABS: INR 1.6; Prothrombin Time 17.6 Seconds (9.4-12.1)
[2016-10-23 01:20] LABS: BUN/Creatinine Ratio 14 (6-26); Blood Urea Nitrogen 15 mg/dL (8-26); Calcium 9.2 mg/dL (8.6-10.8); Carbon Dioxide 27 mEq/L (19-29); Chloride 103 mEq/L (98-109); Glucose 137 mg/dL (70-99); Magnesium 1.7 mg/dL (1.6-2.6); Osmolality,Calculated 287 (280-300); Phosphorous 1.1 mg/dL (2.3-4.7); Potassium 4.4 mEq/L (3.5-4.5); Sodium 137 mEq/L (136-145); eGFR For African Americans > 60 (> 60); eGFR For Non-African Americans > 60 (> 60)
[2016-10-23] MEDS: 0.9 % Sodium Chloride 1,000 ML IVC SCH (05:55)
[2016-10-23] MEDS: Pantoprazole 40 MG VIAL IVP SCH (05:56)
[2016-10-23] MEDS: Clotrimazole/Betameth Dip CRM 45 APPL/45 GM TUBE TP SCH (08:45)
[2016-10-23 08:49] LABS: Alanine Aminotransferase 85 Units/L (0-55); Albumin 3.1 g/dL (3.5-5.0); Albumin/Globulin Ratio 0.9 (1.1-2.2); Alkaline Phosphatase 128 Units/L (38-126); Aspartate Amino Transferase 69 Units/L (5-34); Bilirubin,Indirect 0.6 mg/dL (0.0-1.2); Bilirubin,Total 1.3 mg/dL (0.2-1.2); Globulin 3.4 g/dL (2.4-3.5); Total Protein 6.5 g/dL (6.0-8.3)
[2016-10-23 08:50] LABS: Bilirubin,Direct 0.7 mg/dL (0.0-0.5)
[2016-10-23 11:09] VITALS: BP 130/78
--- NOTE | 2016-10-23 11:14 | Discharge Summary ---
Date of Encounter: 10/23/16 Time of Encounter: 11:13 - Discharge Diagnosis (1) Pancreatitis Priority: Primary Status: Acute Qualifiers: Chronicity: acute Pancreatitis type: unspecified pancreatitis type Acute pancreatitis complication: unspecified Qualified Code(s): K85.90 - Acute pancreatitis without necrosis or infection, unspecified (2) Hyperbilirubinemia Priority: Secondary Status: Acute (3) Hypertension Priority: Secondary Status: Chronic Qualifiers: Hypertension type: essential hypertension Qualified Code(s): I10 - Essential (primary) hypertension (4) DVT (deep venous thrombosis) Priority: Secondary Status: Chronic Qualifiers: DVT location: lower extremity Affected thrombotic vein of extremity: unspecified vein of extremity Chronicity: chronic Laterality: unspecified laterality Qualified Code(s): I82.509 - Chronic embolism and thrombosis of unspecified deep veins of unspecified lower extremity (5) Pulmonary embolism Priority: Secondary Status: Chronic Qualifiers: Pulmonary embolism type: other Chronicity: chronic Acute cor pulmonale presence: without acute cor pulmonale Qualified Code(s): I27.82 - Chronic pulmonary embolism (6) DVT prophylaxis Priority: Secondary Status: Acute (7) Supratherapeutic INR Priority: Secondary Status: Resolved - Discharge Medications Home Medications: Allopurinol [Zyloprim] 300 mg PO HS 01/03/15 [History] Warfarin [Coumadin] 5 mg PO 1800 01/03/15 [History] Clotrimazole/Betameth Dip CRM [Lotrisone CRM] 1 appl TP DAILY 10/20/16 [History] Triamterene/HCTZ 37.5/25mg [Dyazide] 1 tab PO DAILY 10/20/16 [History] Allergies/Adverse Reactions: 3 Allergy/AdvReac Type Severity Reaction Status Date / Time clindamycin AdvReac Rash Verified 01/03/15 12:44 tamsulosin [From Flomax] AdvReac Rash Verified 01/03/15 12:44 Date of admission: 10/22/16 06:39 Primary care physician: Torsten Mcdaniel MD Consults: GI: Dr. Latham Discharging clinician: Elsa Sena Anticipated date of discharge: 10/23/16 - Patient Status Disposition: Home, Self-Care Condition: Good Functional capacity at discharge: independent ambulation Overall status at discharge: patient is back to baseline - Discharge Instructions Follow Up With: Torsten Mcdaniel MD [Primary Care Provider] - 10/28/16 11:00 am Additional Instructions: Please follow up with your primary care physician within five days after your discharge from the hospital. Please follow up with GI within one to two weeks after your discharge from the hospital. Please avoid fatty foods after your discharge. Please hold your blood pressure medication if your systolic blood pressure is less than 120. Inform your primary care physician about your low HR and please seek medical help immediately if you have chest pain Resume your home dose of Coumadin and follow up with your PCP on Wednesday (10/26/16 ) to monitor your INR level. Resume all your other home medications as prescribed by your primary care physician. - Diet and Activity Activity: resume usual activities as tolerated Diet: low fat, low cholesterol, low salt diet Hospital course: Mr. Quintanilla is a 71 year old male with PMH of chronic pancreatitis, DVT, PE, HTN , bradycardia admitted for abdominal pain. He was found to have acute pancreatitis and elevated LFTs. He was started on supportive care with IV fluids , pain medications, and was placed to be NPO. He had a liver US which showed mild biliary dilation upo to 10mm for which he was followed by GI. He underwent ERCP which showed a filling defect due to which common bile duct/ major papilla was dilated and removal of calculi/debris from the biliary pancreatic ducts was done. Pt's presenting symptoms have completely resolved and he has been tolerating cardiac diet well. He was noted to have asymptomatic bradycardia due to which an EKG was done. He was found to have first degree AV block which is unchanged from his EKG in 2015. Pt reports of chronically having low heart rate. He is clinically asymptomatic and wishes to be discharged to home. He will be discharged to home with follow up with PCP and GI. Pt is also advised to consult his PCP about his HR. Patient and demonstrate understanding of his diagnosis and agree with the discharge care and plan. - Time Spent with Patient Total time spent providing and/or coordinating discharge services: Less than 30 minutes - Constitutional Vitals: Temp Pulse Resp BP Pulse Ox 97.8 F 42 17 130/78 95 10/23/16 11:08 10/23/16 11:08 10/23/16 11:08 10/23/16 11:08 10/23/16 11:08 General appearance: Present: cooperative, A&O X 3, morbidly obese, pleasant, no acute distress, answers questions appropriately - Head Head exam: Present: atraumatic, normocephalic - Eye Eye exam: Present: conjuntiva pink, sclera anicteric - Respiratory Respiratory exam: Present: CTAB. Absent: accessory muscle use, rales, rhonchi, wheezes - Cardiovascular Cardiovascular exam: Present: bradycardia, +S1, +S2. Absent: diastolic murmur, systolic murmur - GI/Abdominal GI/Abdominal exam: Present: normal bowel sounds, soft, no peritoneal signs. Absent: distended, tenderness - Extremities Exam Extremities exam: Present: pedal edema, warm, radial pulses palpable and symmetrical. Absent: calf tenderness - Neurological Exam Neurological exam: Present: alert, oriented X3 - Psychiatric Psychiatric exam: Present: normal affect, normal mood
[2016-10-23] MEDS ORDERED: *HR* Warfarin 5 MG TABLET PO SCH (13:00)
[2016-10-23] MEDS ORDERED: Ondansetron 4 MG/2 ML VIAL IVP ONE (14:47)
[2016-10-23] MEDS ORDERED: *HR* Propofol 200 MG/20 ML VIAL IVP ONE (14:47)
[2016-10-23] MEDS ORDERED: Lidocaine -MPF 4% 5 ML AMPUL INFILT ONE (14:47)
[2016-10-23] MEDS ORDERED: *HR* Succinylcholine 200 MG/10 ML VIAL IVP ONE (14:47)
[2016-10-23] MEDS ORDERED: Lidocaine -MPF 2% 5 ML VIAL INFILT ONE (14:47)
--- NOTE | 2016-10-23 17:06 | Electrocardiograph Report ---
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
== END 2016-10-23 14:48 | disposition home or self-care (01) | DRG 439 ==
LOC: 3ANU 17:21 → EMEROO 17:21 → 3ANU 20:46
PROVIDERS: ADMIT Internal Medicine; ATTEND Internal Medicine